=== PATIENT | female | born 1995 | race Two or more races ===

== ENCOUNTER 2024-11-24 08:02 | Inpatient (IN) | payer OTHER ==
[~2024-11-24] VITALS: Ht 162.6 cm; Wt 55.3 kg
[2024-11-24] MEDS ORDERED: ESCITALOPRAM OX10 MG PO (08:13)
[2024-11-24 08:15] VITALS: BP 137/86; O2SAT 96
--- NOTE | 2024-11-24 08:18 | NUR ---
PACIENTE ALERTA Y ORIENTADA X3 REFIERE QUE DESDE HACE ESTA MADRUGADA COMENZO CON DOLOR ABDOMINAL CUADRANTE SUEPRIOR DERECHO. REFIERE TENER NAUSEAS NIEGA VOMITOS Y DIARREAS. SE MIDE S/V Y SE UBICA.
--- NOTE | 2024-11-24 09:12 | NUR ---
SE EDUCA A PACIENTE SOBRE TRATAIMENTO MEDICO EL CUAL REFIERE ENTENDER, SE REALIZA LENNOX DE MUESTRAS BAJO MEDIDAS ASEPTICAS Y ASHA ORDEN MEDICA.
[2024-11-24 09:48] LABS: HEMATOCRIT 45.8 % (36.0-45.00); HEMOGLOBIN 15.4 g/dL (12.0-15.00); MEAN CELL VOLUME 89.7 fL (80.00-100.00); MEAN CORPUSCULAR HEMOGLOBIN 30.2 pg (27.00-32.0); MEAN CORPUSCULAR HGB CONC 33.7 g/dl (32.0-36.0); PLATELET COUNT 370 K/uL (150-450); RED CELL DISTRIBUTION WIDTH 13.2 % (11.5-14.5)
[2024-11-24 09:54] LABS: ALBUMIN 3.9 gm/dL (3.4-5.0); BILIRUBIN TOTAL 0.55 mg/dL (0.3-1.2); CREATININE SERUM 0.65 mg/dL (0.55-1.02); GFR 107.02; GLOBULINA 4.4 G/DL (2.4-3.5); POTASSIUM 3.75 mEq/L (3.5-5.1); TOTAL PROTEIN 8.3 gm/dL (6.4-8.2)
[2024-11-24 10:00] LABS: PH,URINE 7.5 (5.0-8.0); URINE APPEARANCE Clear; URINE BILIRRUBIN Negative (NEGATIVE); URINE BLOOD Small; URINE COLOR Yellow; URINE GLUCOSE Negative (NEGATIVE); URINE KETONE Negative (NEGATIVE); URINE LEUKOCYTE Moderate; URINE NITRATE Negative; URINE PROTEIN Negative (NEGATIVE); URINE UROBILINOGEN 0.2 E.U./dl
[2024-11-24 10:16] LABS: URINE BACTERIA 575.2 uL (0.0-1933); URINE EPITHELIAL CELLS 6.3 uL (0.0-38.8); URINE RBC 15.9 uL (0.0-20.8); URINE WBC 6.8 uL (0.0-23.2)
[2024-11-24] MEDS ORDERED: CEFAZOLIN SODIUM 1,000 MG in 0.9 % SODIUM CHLORIDE 50 ML IV SCH (13:09)
[2024-11-24] MEDS ORDERED: FAMOTIDINE/PF 20 MG in 0.9 % SODIUM CHLORIDE 8 ML IV PUSH SCH (13:14)
[2024-11-24] MEDS ORDERED: MORPHINE SULFATE 2 MG/ML CARTRIDGE IV PRN (13:15)
[2024-11-24] MEDS ORDERED: 0.9 % SODIUM CHLORIDE 1,000 ML IV SCH (13:15)
[2024-11-24] MEDS ORDERED: ACETAMINOPHEN 500 MG GEL..CAP PO PRN (13:15)
[2024-11-28] MEDS ORDERED: WELLBUTRIN XL300 MG PO (08:51)
== END 2024-11-24 15:48 | disposition left against medical advice (07) | DRG 951 ==
LOC: ER 08:02 → SURH 14:07 → SURG 14:07 → SURH 14:43
PROVIDERS: Emergency Medicine; ADMIT Internal Medicine; ATTEND Internal Medicine
PROC: BW40ZZZ Ultrasonography of Abdomen (ICD-10-PCS; principal; 2024-11-24)
DX: Z53.29 Procedure and treatment not carried out because of patient's decision for other reasons (principal); K80.20 Calculus of gallbladder without cholecystitis without obstruction

== ENCOUNTER 2024-12-03 05:55 | Day surgery (SDC) | payer OTHER ==
[2024-11-28 09:14] LABS: HEMATOCRIT 44.2 % (36.0-45.00); MEAN CELL VOLUME 89.3 fL (80.00-100.00); MEAN CORPUSCULAR HEMOGLOBIN 30.3 pg (27.00-32.0); PLATELET COUNT 338 K/uL (150-450); RED BLOOD COUNT 4.96 M/uL (4.00-6.00)
[2024-11-28 09:16] LABS: PH,URINE 6.5 (5.0-8.0); URINE APPEARANCE Clear; URINE BILIRRUBIN Negative (NEGATIVE); URINE BLOOD Negative; URINE COLOR Yellow; URINE GLUCOSE Negative (NEGATIVE); URINE KETONE Negative (NEGATIVE); URINE LEUKOCYTE Moderate; URINE NITRATE Negative; URINE PROTEIN Negative (NEGATIVE); URINE UROBILINOGEN 0.2 E.U./dl
[2024-11-28 09:21] LABS: URINE BACTERIA 3105.2 uL (0.0-1933); URINE EPITHELIAL CELLS 40.8 uL (0.0-38.8); URINE RBC 29.6 uL (0.0-20.8)
[2024-11-28 09:26] LABS: URINE CAST 0.14 uL (0.0-1.40)
[2024-11-28 09:37] LABS: INR 0.97; PARTIAL THROMBOPLASTIN TIME 27.6 SECONDS (22.0-34.0); PROTHROMBIN TIME 10.6 SECONDS (9.0-11.5)
[2024-11-28 10:26] LABS: ALBUMIN 3.7 gm/dL (3.4-5.0); BILIRUBIN TOTAL 0.54 mg/dL (0.3-1.2); CALCIUM 8.9 mg/dL (8.5-10.1); CREATININE SERUM 0.57 mg/dL (0.55-1.02); GFR 124.54; GLOBULINA 3.6 G/DL (2.4-3.5); POTASSIUM 4.19 mEq/L (3.5-5.1); TOTAL PROTEIN 7.3 gm/dL (6.4-8.2)
[~2024-12-03 05:55] MED LIST: ESCITALOPRAM OX10 MG PO; WELLBUTRIN XL300 MG PO
[2024-12-03] MEDS ORDERED: CEFAZOLIN SODIUM 1,000 MG VIAL IV ONE (10:30)
[2024-12-03] MEDS ORDERED: MORPHINE SULFATE 4 MG/ML VIAL IV ONE (11:20)
== END 2024-12-03 13:50 | disposition home or self-care (01) ==
LOC: CIR.AMB 05:55
PROVIDERS: ATTEND Surgery
DX: K80.10 Calculus of gallbladder with chronic cholecystitis without obstruction (principal); Z88.2 Allergy status to sulfonamides; Z91.013 Allergy to seafood; F41.8 Other specified anxiety disorders